=== PATIENT | female | born 1985 | race Caucasian/White ===

== ENCOUNTER 2019-06-02 09:13 | Emergency (ER) | payer MEDICAID, SELFPAY ==
[2019-06-02 09:13] VITALS: BP 144/91; PULSE 110; RESP 18; TEMP 36.4; O2SAT 97; BMI 44.2
--- NOTE | 2019-06-02 09:15 | NURSING ---
NO OLD EKGS
--- NOTE | 2019-06-02 09:25 | EKG12_ITS ---
Test Reason : CP Blood Pressure : / mmHG Vent. Rate : 087 BPM Atrial Rate : 087 BPM P-R Int : 128 ms QRS Dur : 080 ms QT Int : 356 ms P-R-T Axes : 007 059 021 degrees QTc Int : 428 ms Normal sinus rhythm Normal ECG Confirmed by FAN NG, ENIO ([id number]), associate entertainment editor RJ WEBER ([id number]) on 06/08/2019 11:52:45 AM Referred By: ABDOUL Confirmed By:SABRA CHAVIRA MD
--- NOTE | 2019-06-02 09:26 | RAD_ITS ---
STUDY: X-RAY CHEST REASON FOR EXAM: Female, 33 years old. One-week history of chest pain. Shortness of breath. TECHNIQUE: PA and lateral views of the chest. COMPARISON: None. FINDINGS: EKG electrodes are seen. Focal infiltrate in the posterior medial segment of the left lower lobe. There is no demonstrated pleural abnormality. Normal size heart. Normal mediastinum and brii. Normal visualized pulmonary arteries. Normal visualized aortic arch and descending thoracic aorta. Normal visualized thoracic spine. Normal visualized ribs, clavicles, and shoulders. There is no demonstrated abnormality of the visualized soft tissue structures of the upper abdomen. RAD/Chest PA and Lateral IMPRESSION: Focal infiltrate in the posterior medial segment of the left lower lobe. Electronically Signed: Froylan Avila, at 10:12 EST , Service support ,
[2019-06-02] MEDS: 0.9% Normal Saline 1,000 ML 1000 ML IV (09:42)
--- NOTE | 2019-06-02 09:43 | ED.DCSUM_ITS ---
History of Present Illness Chief Complaint: Chest Pain Informant: Patient Onset: Days Narrative: Patient is a 33-year-old female with history of endometriosis and Ludy thyroiditis presenting with chest pain shortness of breath. Patient states for the past week she has had pain in her left upper chest as well as her left upper back above her scapula. It does not radiate. She initially thought she may be pulled a muscle from changing light bulbs but the pain persisted. Today she started to feel short of breath at rest. She states she feels nauseous when she takes a deep breath. There are no alleviating or aggravating factors for the pain. She states it is intermittent but it comes and goes all day long. She cannot tell me how long it lasts for. She denies any other symptoms and states she is otherwise feeling well. She denies any recent cough or cold-like symptoms. She denies any vomiting or abdominal pain. She denies any urinary symptoms. She is on oral contraceptives for her endometriosis. She denies any leg swelling. She denies any history of DVT or PE. She notes she was just recently started on Synthroid for hypothyroid. Past Medical History - Allergies and Home Meds Allergies/Adverse Reactions: Allergies hydromorphone [From Dilaudid] Allergy (Verified 06/02/19 09:16) Unknown codeine Adverse Reaction (Verified 06/02/19 09:16) Vomiting diphenhydramine [From Benadryl] Adverse Reaction (Verified 06/02/19 09:16) Other prochlorperazine [From Compazine] Adverse Reaction (Verified 06/02/19 09:16) Other Primary Care Physician: [facility] Doctor,Out of [NON-STAFF] - Past Medical History: - - Ludy's, hypothyroid, endometriosis Surgical History: noncontributory Smoking Status: Never smoker Review of Systems General: Denies: Chills, Fever, Sweats Eyes: Denies: Visual changes - bilaterally, Diplopia ENT: Denies: Rhinorrhea, Sore throat Cardiovascular: Reports: Chest pain. Denies: Palpitations Respiratory: Reports: Dyspnea, Cough - AM for 3 weeks . Denies: Sputum, Dyspnea on exertion Gastrointestinal: Denies: Abdominal pain, Nausea, Vomiting, Diarrhea, Melena, Hematochezia Genitourinary: Denies: Dysuria, Hematuria, Frequency Musculoskeletal: Denies: Back pain, Extremity Pain Skin: Denies: Rash, Wounds Neurological: Denies: Headache, Weakness, Numbness Physical Exam Vital Signs/Narrative: Vital Signs Temp Pulse Resp BP Pulse Ox 06/02/19 09:13 97.6 F L 110 H 18 144/91 H 97 Inital Vital Signs reviewed: Yes General: Well nourished, Well developed, No Acute Distress Head: Normocephalic, Atraumatic Eyes: Perrl, EOMI ENT: Moist mucous membranes, No rhinorrhea Neck: Supple, Nontender Cardiovascular: Regular rhythm, No murmurs, Tachycardia Respiratory: No distress, CTA bilaterally, Chest nontender Abdomen: Soft, Nontender, Nondistended, Normal bowel sounds Back: Nontender, Normal Inspection Extremities: Nontender, No edema Skin: Normal color, No rash Neurological: Alert, Oriented x3, Cranial nerves II-XII grossly intact, Normal Strength, Normal Sensation Psychological: Normal affect, Normal Mood Diagnostic/Tx/Re-eval Chest X-Ray - ED: 2 View, Read by ED Physician, Read by Radiologist, Left Infiltrate CTA PE Study: No Evidence of PE, No Evidence of Dissection Clinical Impression(s) from Imaging Studies Chest X-Ray 06/02/19 09:26 IMPRESSION: Focal infiltrate in the posterior medial segment of the left lower lobe. Electronically Signed: Froylan Avila, at 10:12 EST , Service support , Laboratory Data 06/02/19 06/02/19 06/02/19 09:31 09:31 09:31 WBC 6.9 RBC 4.86 Hgb 15.6 H Hct 44.3 MCV 91.2 MCH 32.1 H MCHC 35.2 RDW Std Deviation 39.3 RDW Coeff of Tamara 11.9 Plt Count 286 MPV 9.1 Immature Gran % (Auto) 0.300 Neut % (Auto) 69.0 Lymph % (Auto) 21.1 [place] % (Auto) 7.6 Eos % (Auto) 1.6 Baso % (Auto) 0.4 Absolute Neuts (auto) 4.7 Absolute Lymphs (auto) 1.45 Nucleated RBC % 0 D-Dimer Quant (PE/DVT) 0.33 Sodium 138 Potassium 3.9 Chloride 106 Carbon Dioxide 28.0 Anion Gap 4 L BUN 10 Creatinine 0.94 Estim Creat Clear Calc 69.76 Est GFR (MDRD) Af Amer 88 Est GFR (MDRD) Non-Af 72 BUN/Creatinine Ratio 10.6 Glucose 117 H Calcium 8.9 Troponin I < 0.015 TSH 0.94 Urine Test 06/02/19 10:03 WBC RBC Hgb Hct MCV MCH MCHC RDW Std Deviation RDW Coeff of Tamara Plt Count MPV Immature Gran % (Auto) Neut % (Auto) Lymph % (Auto) [place] % (Auto) Eos % (Auto) Baso % (Auto) Absolute Neuts (auto) Absolute Lymphs (auto) Nucleated RBC % D-Dimer Quant (PE/DVT) Sodium Potassium Chloride Carbon Dioxide Anion Gap BUN Creatinine Estim Creat Clear Calc Est GFR (MDRD) Af Amer Est GFR (MDRD) Non-Af BUN/Creatinine Ratio Glucose Calcium Troponin I TSH Urine Test Negative - Rhythm Strip Rhythm Strip: Sinus Tach Rate: 105 Ectopy: None - EKG Initial EKG Interpretation: Sinus Rhythm, - - Normal sinus rhythm at a rate of [address] segments Normal axis - Medical Decision Making Patient evaluated for chest pain shortness of breath. She appears nontoxic in no acute distress. Vital signs are significant for tachycardia. She is not hypoxic. CBC, BMP troponin and d-dimer are all normal. EKG is normal sinus rhythm. Does not have any concerning abnormalities. Chest x-ray was read as a infiltrate on the left lobe. Clinically this does not match her description. CT is obtained to better evaluate the lungs and also rule out an area of infarct that is showing up as a infiltrate. CTA is grossly negative. She does not have any infiltrate or PE. I am not sure exactly what is causing her pain however patient be discharged home for outpatient follow-up. She is given a dose of Zofran for nausea initially emergency room as well as IV fluids. At discharge she is given a dose of Toradol she states she is getting a headache. Patient is counseled on signs and symptoms requiring return to the emergency room. Patient verbalizes agreement and understand this plan. Patient discharged home in stable and improved condition. ED Disposition - Plan for ED Patient: Disposition: Home or Assisted Living Diagnosis: Chest pain Instructions: CHEST PAIN, Uncertain Cause Referrals: [facility] Doctor,Out of [NON-STAFF] - Additional Instructions: Please follow-up with your primary care doctor. The exact cause of your chest pain is not clear today however your work-up was normal today. You do not have a pneumonia, pulmonary embolism or other emergent process at this time. Take Tylenol and/or ibuprofen as needed for your symptoms. Return emergency room with any worsening symptoms.
[2019-06-02 09:47] LABS: Absolute Lymphocyte Count 1.45 X10^3/uL (0.83-4.51); Absolute Neutrophil Count 4.7 X10^3/uL (2.0-7.7); Basophil# 0.03 X10^3/uL; Basophil% 0.4 % (0-1); Eosinophil# 0.11 X10^3/uL; Eosinophils% 1.6 % (0-5); Hematocrit 44.3 % (37-47); Hemoglobin 15.6 g/dL (12.0-15.0); Lymphocyte # 1.45 X10^3/ul (4.0); Lymphocyte % 21.1 % (19-41); Mean Corp Hgb Conc 35.2 g/dL (32-36); Mean Corpuscular Hgb 32.1 pg (27.0-32.0); Mean Corpuscular Volume 91.2 fL (81-99); Mean Platelet Vol. 9.1 fl (6.2-12.0); Monocyte# 0.52 X10^3/uL; Monocyte% 7.6 % (0-10); NRBC Flagged by Analyzer 0 % (0-5); Neutrophil # 4.74 X10^3/uL (2.7-7.7); Platelet Count 286 K/mm3 (150-450); RBC Distribution Width CV 11.9 % (11.6-14.6); RBC Distribution Width SD 39.3 fl (35.1-43.9); Red Blood Count 4.86 M/mm3 (4.2-5.4); White Blood Count 6.9 K/mm3 (4.4-11.0)
[2019-06-02 10:01] LABS: D-Dimer Quantitative (DVT/PE) 0.33 FEU/ug/m (0.27-0.49)
[2019-06-02] MEDS: Ondansetron 4 MG/2 ML Vial IV (10:09)
[2019-06-02 10:10] LABS: Anion Gap 4 (5-15); BUN 10 mg/dL (7-18); BUN/Creat Ratio 10.6 RATIO (10-20); Calcium,Total 8.9 mg/dL (8.5-10.1); Chloride 106 mmol/L (98-107); Creatinine, Serum 0.94 mg/dL (0.55-1.02); EST Glomerular Filtration Rate 72 mL/min (>60); Est Glom Filt Rate - Afr Amer 88 mL/min (>60); Estimated Creatinine Clearance 69.76 ml/min; Glucose 117 mg/dL (74-106); Potassium 3.9 mmol/L (3.5-5.1); Sodium Level 138 mmol/L (136-145); Thyroid Stim Hormone (TSH) 0.94 uIU/mL (0.358-3.74)
[2019-06-02 10:11] LABS: Internal QC Validated? YES +Cl - CLEAR BKGD
[2019-06-02 10:14] LABS: Pregnancy, Urine Negative Negative
--- NOTE | 2019-06-02 10:43 | CT_ITS ---
STUDY: CTA CHEST REASON FOR EXAM: Female, 33 years old. Shortness of breath since this morning. One-week history of the left upper lobe chest pain. RADIATION DOSAGE (If Supplied By Facility): CTDIvol = ( 10.29 ) mGy, DLP = ( 436.16 ) mGycm TECHNIQUE: The examination was performed with the intravenous administration of 100 ML ISOVUE 370. Post-processing of the angiographic images was performed, with multiplanar reformation and 3D reconstruction. Individualized dose optimization techniques were used for this CT. COMPARISON: None. FINDINGS: Small bilateral axillary lymph nodes. Normal enhancement of the main pulmonary artery and right and left pulmonary arteries. Normal enhancement of the bilateral peripheral pulmonary arteries. There is no demonstrated pulmonary embolism. Normal thoracic aorta and visualized great vessels. There is no demonstrated aortic dissection. Normal heart and pericardium. Normal mediastinum. Normal hilar regions. Normal visualized trachea and bronchi. The lungs are well expanded. Normal pulmonary parenchyma. Normal pleura. Normal chest wall structures. Normal osseous structures. Normal visualized upper abdomen. CT/CTA Chest W/WO Contrast IMPRESSION: Normal CTA chest examination, without a demonstrated pulmonary embolism or arterial dissection. Electronically Signed: Froylan Avila, at 11:11 EST , Service support ,
[2019-06-02 11:13] VITALS: BP 118/59; PULSE 91; RESP 19; O2SAT 94
[2019-06-02] MEDS: Ketorolac 15 MG/ML Vial IV (11:57)
[2019-06-02 12:07] VITALS: BP 113/59; PULSE 88; RESP 20; O2SAT 96
== END 2019-06-02 12:08 | disposition home or self-care (01) ==
PROVIDERS: Emergency Provider Emergency Medicine; Family Provider Family Medicine; PCP Family Medicine
DX: R07.9 Chest pain, unspecified (principal); R06.02 Shortness of breath; R51 Headache; R11.0 Nausea; E06.3 Autoimmune thyroiditis; R00.0 Tachycardia, unspecified; Z79.899 Other long term (current) drug therapy; Z88.5 Allergy status to narcotic agent; Z88.8 Allergy status to other drugs, medicaments and biological substances
CPT/HCPCS: 71046; 71275; 80048; 81025; 84443; 84484; 85025; 85379; 93005; 96361; 96374; 96375; 99284; J7030; Q9967; A4216; J2405

== ENCOUNTER → 2020-03-25 11:39 | Outpatient (CLI) | payer OTHER, SELFPAY ==
[2020-03-25 10:26] VITALS: BMI 44.9
[2020-03-25 15:43] LABS: Vitamin B12 242 pg/mL (211-911)
[2020-03-25 15:56] LABS: Free T3 2.7 pg/mL (2.18-3.98); T4 Free Direct 0.82 ng/dL (0.76-1.46); Thyroid Stim Hormone (TSH) 2.58 uIU/mL (0.358-3.74)
[2020-03-28 16:08] LABS: Thyroid Stim Immunoglob <0.10 IU/L (0.00-0.55)
[2020-03-28 18:08] LABS: Thyroid Peroxidase AB 47 IU/mL (0-34)
== END ==
PROVIDERS: PCP Family Medicine; Referring Provider Internal Medicine Endocrinology, Diabetes & Metabolism; Visit Provider Internal Medicine Endocrinology, Diabetes & Metabolism
DX: E06.3 Autoimmune thyroiditis (principal); E53.8 Deficiency of other specified B group vitamins
CPT/HCPCS: 36415; 82607; 84439; 84443; 84445; 84481; 86376

== ENCOUNTER 2020-09-02 21:58 | Outpatient (RCR) | payer OTHER, SELFPAY ==
[2020-06-01 07:53] VITALS: BMI 45.3
[2020-09-02] MEDS: COVID-19 VACC, MRNA(PFIZER)/PF 30 MCG/0.3 ML SYRINGE IM (15:37)
[2020-09-23] MEDS: COVID-19 VACC, MRNA(PFIZER)/PF 30 MCG/0.3 ML SYRINGE IM (15:06)
== END 2020-09-02 23:59 ==
LOC: IMMUN 21:58
PROVIDERS: PCP Family Medicine; Visit Provider Family Medicine
DX: Z23 Encounter for immunization (principal)
CPT/HCPCS: 0001A; 0002A; 91300

== ENCOUNTER 2020-12-09 08:13 | Emergency (ER) | payer OTHER, SELFPAY ==
[2020-06-01 07:53] VITALS: BMI 45.3
[2020-12-09 08:14] VITALS: BP 135/89; PULSE 108; RESP 16; TEMP 36.1; O2SAT 96; BMI 48.6
--- NOTE | 2020-12-09 08:32 | EKG12_ITS ---
Test Reason : CHEST PAIN Blood Pressure : / mmHG Vent. Rate : 096 BPM Atrial Rate : 096 BPM P-R Int : 126 ms QRS Dur : 082 ms QT Int : 354 ms P-R-T Axes : 040 067 032 degrees QTc Int : 447 ms Normal sinus rhythm Normal ECG Confirmed by YOSELIN NG, SUE ([id number]), editorial clerk RJ WEBER ([id number]) on 12/13/2020 6:58:01 AM Referred By: JOSE Confirmed By:SUE WYATT MD
--- NOTE | 2020-12-09 08:33 | EDS_ITS ---
HPI History of Present Illness Chief Complaint: Chest Pain Informant: patient Narrative Narrative: 35-year-old female states that yesterday she began to have a pain down her entire left arm. She describes it as the pain you get when you hit your funny bone. It is worse with some movements and improves with some positions she also notes that she developed a burning sensation along her lower left mid axillary chest wall. She is not noticed any rashes. Nothing seems to make that better or worse. She also notes a dull pain that goes from the left upper chest into the left arm. She states she has had the symptoms before and has had negative work-ups. She states that she was hoping it would be gone by this morning but it was not so she came in. History of Ludy's thyroiditis. [facility] Medical History Allergies Anemia Ludy's disease Hypothyroidism Parathyroid abnormality Severe headache Home Medications montelukast 10 mg PO DAILY 06/02/19 [History Last Taken Unknown] norethindrone (contraceptive) 0.35 mg PO DAILY 06/02/19 [History Last Taken Unknown] omeprazole 20 mg capsule,delayed release 20 mg PO DAILY 03/25/20 [History Last Taken Unknown] Synthroid 50 mcg tablet 50 mcg PO DAILY #30 tab NS 10/25/20 [Rx Last Taken Unknown] Allergy/AdvReac Type Severity Reaction Status Date / Time amoxicillin Allergy unknown Verified 12/09/20 08:14 hydromorphone [From Dilaudid] Allergy Unknown Verified 12/09/20 08:14 codeine AdvReac Vomiting Verified 12/09/20 08:14 diphenhydramine AdvReac Other Verified 12/09/20 08:14 [From Benadryl] prochlorperazine AdvReac Other Verified 12/09/20 08:14 [From Compazine] Family History Other Asthma Heart disease Surgical History Hx of section Social History (Updated 12/09/20 @ 08:[address] Filiberto Gee DO) Smoking Status: Never smoker substance use type: does not use ROS ROS ED Constitutional Constitutional ED: Denies chills or weight loss Eyes Eyes: Denies change in vision or diplopia ENT ENT ED: Denies ear pain, rhinorrhea or sore throat Cardiovascular Cardiovascular: Reports chest pain; Denies orthopnea, palpitations or racing heartbeat Respiratory/Chest Respiratory/Chest: Denies cough, dyspnea or orthopnea Gastrointestinal Gastrointestinal: Denies abdominal pain, diarrhea, nausea or vomiting Genitourinary Genitourinary ED: Denies dysuria, hematuria or urinary frequency Musculoskeletal Musculoskeletal: Reports other Details: See history of present illness ; Denies arthralgias or myalgias Integumentary Denies abscess or rash Neurologic Neurologic: Denies headache(s) or weakness Psychiatric Psychiatric: Denies anxiety, depression, suicidal ideation or suicidal thoughts Endocrine Endocrinology: Denies polydipsia, polyphagia or polyuria Allergic/Immunologic Allergic/Immunologic ED: Denies mouth swelling, tongue swelling or urticaria EXAM Physical Exam Const Vital Signs: 12/09/20 08:14 12/09/20 08:26 Temperature 97.0 F L Temperature Source Temporal Pulse Rate 108 H Respiratory Rate 16 Respiratory Effort Normal Non-Labored Blood Pressure 135/89 H Blood Pressure Mean 104 Pulse Ox 96 Oxygen Delivery Method Room Air Positive well nourished and well developed General Appearance ED: well developed HEENT Reports normocephalic, head/scalp atraumatic and moist mucous membranes Eyes PERRL and EOMs intact bilaterally Neck no lymphadenopathy, supple and no JVD Resp normal respiratory effort and clear to auscultation bilaterally Cardio regular rate, regular rhythm and no murmurs GI normal to inspection, nondistended, normoactive bowel sounds and non-tender Palpation: soft Back/Spine no CVA tenderness and normal ROM Extremity normal to inspection General Extremety ED: Negative for edema General Extremity: Negative for edema Neuro oriented x3 and CN's II-XII intact bilaterally Sensorium / Orientation: alert Motor Exam: strength 5/5 throughout Psych mental status grossly normal Mood & Affect: Negative for depressed or tearful Skin no rashes or lesions noted and no wounds Heart Score History: Slightly/Non-Suspicious ECG: Normal Age: </= 45 years Risk Factors: No Risk Factors Troponin: </= Normal Limit Score: 0 MDM MDM MDM Narrative Medical decision making narrative: My interpretation of the single view portable chest x-ray is no acute process. CBC is normal. BMP troponin is negative. Patient received Toradol and Zofran. At this time I think the patient can be safely discharged home. I suspect musculoskeletal causes for her symptoms. The burning pain we did talk about the possibility of a neuropathic pain cause such as shingles. She will monitor Lab Data Attestation: I reviewed the patient's lab results. Labs: Laboratory Results - last 24 hr 12/09/20 12/09/20 08:24 08:24 WBC 6.9 RBC 4.89 Hgb 15.1 H Hct 45.1 MCV 92.2 MCH 30.9 MCHC 33.5 RDW Std Deviation 40.8 RDW Coeff of Tamara 12.0 Plt Count 309 MPV 8.9 Immature Gran % (Auto) 0.300 Neut % (Auto) 60.9 Lymph % (Auto) 27.8 [place] % (Auto) 8.2 Eos % (Auto) 2.4 Baso % (Auto) 0.4 Absolute Neuts (auto) 4.2 Absolute Lymphs (auto) 1.93 Nucleated RBC % 0 Sodium 139 Potassium 4.0 Chloride 106 Carbon Dioxide 27.0 Anion Gap 6 BUN 12 Creatinine 0.87 Estim Creat Clear Calc 73.95 Est GFR (MDRD) Af Amer 95 Est GFR (MDRD) Non-Af 78 BUN/Creatinine Ratio 13.8 Glucose 97 Calcium 9.1 Troponin I High Sens < 3.0 L EKG Initial EKG: Attestation: I personally reviewed and interpreted this EKG as follows: Comments: EKG is a normal sinus rhythm at a rate of 96 bpm. Discharge Plan Triage Chief Complaint: Chest Pain ED Provider: Filiberto Gee Dx/Rx/DC Orders Clinical Impression: Chest pain Instructions: ED Chest Pain, Uncertain Cause Prescriptions: No Action omeprazole 20 mg capsule,delayed release(DR/EC) 20 mg PO DAILY RF: 0 montelukast 10 MG tablet 10 mg PO DAILY RF: 0 norethindrone (contraceptive) 0.35 MG tablet 0.35 mg PO DAILY RF: 0 levothyroxine [Synthroid] 50 mcg tablet 50 mcg PO DAILY Qty: 30 RF: 6 Primary Care Provider: Amie Patel Referrals: Amie Patel MD [Primary Care Provider] - As Needed Disposition Disposition: Home, Self Care
[2020-12-09] MEDS: Ondansetron 4 MG/2 ML Vial IV (08:38)
[2020-12-09] MEDS: Ketorolac 30 MG/ML Syringe IV (08:38)
[2020-12-09 08:42] LABS: Absolute Lymphocyte Count 1.93 X10^3/uL (0.83-4.51); Absolute Neutrophil Count 4.2 X10^3/uL (2.0-7.7); Basophil# 0.03 X10^3/uL; Basophil% 0.4 % (0-1); Eosinophil# 0.17 X10^3/uL; Eosinophils% 2.4 % (0-5); Hematocrit 45.1 % (37-47); Hemoglobin 15.1 g/dL (12.0-15.0); Lymphocyte # 1.93 X10^3/ul (0.83-4.51); Lymphocyte % 27.8 % (19-41); Mean Corp Hgb Conc 33.5 g/dL (32-36); Mean Corpuscular Hgb 30.9 pg (27.0-32.0); Mean Corpuscular Volume 92.2 fL (81-99); Mean Platelet Vol. 8.9 fl (6.2-12.0); Monocyte# 0.57 X10^3/uL; Monocyte% 8.2 % (0-10); NRBC Flagged by Analyzer 0 % (0-5); Neutrophil # 4.22 X10^3/uL (2.7-7.7); Neutrophil % 60.9 % (47-70); Platelet Count 309 K/mm3 (150-450); RBC Distribution Width SD 40.8 fl (35.1-43.9); Red Blood Count 4.89 M/mm3 (4.2-5.4); White Blood Count 6.9 K/mm3 (4.4-11.0)
--- NOTE | 2020-12-09 08:45 | RAD_ITS ---
History: chest pain EXAMINATION/TECHNIQUE: XR Chest 1 View: Portable COMPARISON: 2018 FINDINGS: LINES/DEVICES: None. LUNGS: No consolidation, edema or effusion. No pneumothorax. MEDIASTINUM AND CARDIOVASCULAR STRUCTURES: Cardiac silhouette not enlarged. Central airways and mediastinal contour are unremarkable. BONES AND SOFT TISSUES: Unremarkable. RAD/Chest 1 View (Portable) IMPRESSION: No radiographic evidence of acute cardiopulmonary disease. at 0908 Reported and signed by: Steven Odonnell MD Electronically Signed: Steven Odonnell MD at 9:07 EDT Tel , Service support ,
[2020-12-09 08:56] LABS: Anion Gap 6 (5-15); BUN 12 mg/dL (7-18); BUN/Creat Ratio 13.8 RATIO (10-20); Calcium,Total 9.1 mg/dL (8.5-10.1); Chloride 106 mmol/L (98-107); Creatinine, Serum 0.87 mg/dL (0.55-1.02); EST Glomerular Filtration Rate 78 mL/min (>60); Est Glom Filt Rate - Afr Amer 95 mL/min (>60); Estimated Creatinine Clearance 73.95 ml/min; Glucose 97 mg/dL (74-106); Sodium Level 139 mmol/L (136-145); Troponin-I HS < 3.0 pg/mL (3.0-53.7)
[2020-12-09 09:10] VITALS: BP 117/62; PULSE 59; RESP 16; O2SAT 98
== END 2020-12-09 09:11 | disposition home or self-care (01) ==
LOC: ED 09:04
PROVIDERS: Emergency Provider Emergency Medicine; PCP Family Medicine
DX: R07.9 Chest pain, unspecified (principal); M79.602 Pain in left arm
CPT/HCPCS: 71045; 80048; 84484; 85025; 93005; 96374; 96375; 99284; A4216; J2405